=== PATIENT | female | born 1975 | race African-American/Black ===

== ENCOUNTER 2018-03-10 21:04 | Observation (INO) | payer MEDICAID ==
[~2018-03-10] VITALS: Ht 162.6 cm; Wt 119.3 kg
[2018-03-10] MEDS ORDERED: PREN-55 PO (21:28)
[2018-03-10] MEDS ORDERED: SODIUM CHLORIDE 0.9% 1,000 ML IV NR (21:30)
[2018-03-10 22:20] LABS: CLARITY URINE CLEAR (CLEAR); COLOR URINE DARK YELLOW (YELLOW); KETONES URINE TRACE (NEGATIVE); LEUKOCYTE ESTERASE URINE NEGATIVE (NEGATIVE); NITRITE URINE NEGATIVE (NEGATIVE); OCCULT BLOOD URINE NEGATIVE (NEGATIVE); PH URINE 5.5 (4.5-8.0); PROTEIN URINE 1+ (NEGATIVE); SPECIFIC GRAVITY URINE 1.027 (1.005-1.030)
[2018-03-10] MEDS ORDERED: TERBUTALINE SULFATE 1MG/ML VIAL SUBCUT PRN (23:45)
== END 2018-03-11 00:20 | disposition home or self-care (01) ==
LOC: L&D 21:04
PROVIDERS: ADMIT Specialist; ATTEND Specialist
DX: O62.9 Abnormality of forces of labor, unspecified (principal); O26.893 Other specified pregnancy related conditions, third trimester; R10.30 Lower abdominal pain, unspecified; O09.523 Supervision of elderly multigravida, third trimester; Z3A.38 38 weeks gestation of pregnancy
CPT/HCPCS: 76815; 76818; 81003; 96360; 96361; 99281; G0378